=== PATIENT | female | born 1975 | race Caucasian/White ===

== ENCOUNTER 2025-01-12 13:00 | Outpatient (CLI) | payer BC, SELFPAY ==
--- NOTE | ~2025-01-12 | MR_ITS ---
EXAMINATION: MR lumbar spine wo con DATE: 01/12/2025 13:26 INDICATION: Lumbar radiculopathy TECHNIQUE: Magnetic resonance imaging (MRI) of the lumbar spine was performed without intravenous con trast. Sequences included sagittal T2-weighted FSE, sagittal T2-weighted FS FSE, sagittal T1-weighted FSE, and axial T2-weighted FSE. COMPARISON: None FINDINGS: Thickening of the normal lumbar lordosis. Vertebral body heights are normal. Normal marrow signal. M ild disc height loss at L1-L2 and L2-L3 and moderate disc height loss at L3-L4. The conus medullaris terminates at L1. There is normal signal in the caudal spinal cord. Paravertebral soft tissues are un remarkable. The following disc levels are specifically discussed: T12-L1: The disc does not extend beyond the endplate margin. There is mild right and moderate left fa cet joint osteoarthritis. There is no neural foraminal stenosis. There is no central canal stenosis. L1-L2: Disc is mildly bulging. There is mild left and mild to moderate right facet joint osteoarthrit is. There is minimal bilateral neural foraminal stenosis. There is negligible central canal stenosis. L2-L3: Disc is minimally bulging. There is a crescentic lesion at the anterior superior aspect of the right neural foramen extending 13 mm medial collateral and imaging 5 mm AP and 7 mm craniocaudal brayden picious for a disc extrusion or sequestered disc fragment which results in mild to moderate neural fo raminal stenosis. There is mild bilateral facet joint osteoarthritis. There is a left neural foramina l stenosis. There is negligible central canal stenosis. L3-L4: Disc is mildly bulging. There is moderate bilateral facet joint osteoarthritis. There is mild bilateral neural foraminal stenosis. There is mild central canal stenosis. L4-L5: Disc is minimally bulging. There is moderate bilateral facet joint osteoarthritis. There is mi ld bilateral neural foraminal stenosis. There is no central canal stenosis. L5-S1: The disc does not extend beyond the endplate margin. There is moderate bilateral facet joint o steoarthritis. There is mild left neural foraminal stenosis. There is no central canal stenosis. IMPRESSION: 1. Mild to moderate lumbar spondylosis. 2. Eccentric lesion at the anterior superior aspect of the right L3-L4 neural foramen contributing to mild to moderate neural foraminal stenosis. Given location would favor a disc extrusion or sequester ed disc fragment. Reviewed, dictated and finalized at location B. IMPRESSION: 1. Mild to moderate lumbar spondylosis. 2. Eccentric lesion at the anterior superior aspect of the right L3-L4 neural f oramen contributing to mild to moderate neural foraminal stenosis. Given locati on would favor a disc extrusion or sequestered disc fragment.
== END 2025-01-12 13:01 | disposition home or self-care (01) ==
DX: M47.26 Other spondylosis with radiculopathy, lumbar region (principal)
CPT/HCPCS: 72148